=== PATIENT | male | born 1955 | race Caucasian/White ===

== ENCOUNTER 2024-06-02 14:34 | Emergency (ER) | payer MEDICARE, SELFPAY ==
[2024-06-02 14:52] VITALS: BP 155/93
[2024-06-02 15:12] LABS: Urine Albumin Negative (Neg - Trace); Urine Bilirubin Negative (Negative); Urine Character Clear (Clear); Urine Color Yellow; Urine Glucose Negative (Negative); Urine Ketone Negative (Negative); Urine Leukocyte Negative (Negative); Urine Nitrite Negative (Negative); Urine Occult Blood 3+ (Negative); Urine Urobilinogen Negative (Neg - 1+)
[2024-06-02 15:13] LABS: % Basophils 0.4 % (0-2); % Eosinophils 2.3 % (0-6); % Immature Granulocytes 0.3 % (0-0.5); % Lymphocytes 19.5 % (20.5-51.1); % Monocytes 8.2 % (1.7-9.3); % Neutrophils 69.3 % (42.2-75.2); Absolute Eosinophils 0.2 10^3/uL (0-0.7); Absolute Lymphocytes 1.4 10^3/uL (1.2-3.4); Absolute Monocytes 0.6 10^3/uL (0.1-0.6); Absolute Neutrophils 5.1 10^3/uL (1.4-6.5); Hematocrit 44.9 % (39.0-52.0); Hemoglobin 16.2 g/dL (13.0-18.0); Mean Corp Hgb Conc. 36.1 g/dL (33.0-37.0); Mean Corpuscular Hgb 32.1 pg (27.0-31.0); Mean Corpuscular Volume 88.9 fL (80.0-94.0); Mean Platelet Volume 10.8 fL (7.4-10.4); Nucleated Red Blood Cells % 0 % (-); Platelet Count 294 10^3/uL (130-400); Red Blood Cell Count 5.05 10^6/uL (4.70-6.10); White Blood Cell Count 7.4 10^3/uL (4.8-10.8)
[2024-06-02 15:27] LABS: Potassium 4.1 mmol/L (3.5-5.1); Sodium 134 mmol/L (135-145)
[2024-06-02 15:28] LABS: ALT (SGPT) 45 U/L (0-50); AST (SGOT) 36 U/L (17-59); Albumin 4.5 g/dl (3.5-5.0); Alkaline Phosphatase 126 U/L (38-126); Blood Urea Nitrogen 23 mg/dl (9-20); Calcium 9.6 mg/dl (8.4-10.2); Carbon Dioxide 26 mmol/L (22-30); Chloride 99 mmol/L (98-107); Glucose 139 mg/dl (70-99); Lipase 77 U/L (23-300); Total Protein 6.8 g/dl (6.3-8.2); eGFR > 60.00
[2024-06-02 15:48] LABS: Urine Bacteria Few (Negative); Urine Mucus Many; Urine Red Blood Cell 26-30 /HPF (0-2); Urine Squamous Cell 0-2 /LPF (Few); Urine White Cell 0-2 /HPF (0-5)
--- NOTE | 2024-06-02 16:00 | ED.GENMED ---
History of Present Illness
<Marisol Jain PA-C - Last Filed: 06/02/24 23:10>
General
Chief Complaint: Flank Pain
Source: patient
Exam Limitations: none
Time Seen by Provider: 06/02/24 15:50
Nursing documentation reviewed up to this point in time: agreed with
History of Present Illness
History of Present Illness:
Patient is a 68-year-old male with history hypertension, hyperlipidemia, kidney stones presenting to the emergency department for evaluation of acute onset right flank pain around 1 PM today. Patient states that he was sitting down making phone
call in his room when he noticed that he acute onset dull ache in his right flank. Patient states pain has been constant since initial onset around 1 PM and is worsening in severity. Patient did have 1 wave of nausea earlier which has since
resolved. Patient denies any associated fever, chills, vomiting, dysuria, urinary frequency, or hematuria.
Patient does report a history of kidney stones although he has not had one in many years. Patient feels as if this pain is very similar to prior kidney stones.
Past History
<Marisol Jain PA-C - Last Filed: 06/02/24 23:10>
Past History
ED Past Medical History: Hypercholesterolemia and Other (Kidney stone)
ED Past Surgical History: None
Social History
Tobacco: Non-smoker
Alcohol: Occasional
Personal:
Living: with family
Employment: Employed
Family History
Family History: Other (Noncontributory)
Review of Systems
<Marisol Jain PA-C - Last Filed: 06/02/24 23:10>
Review of Systems
Allergies reviewed?: Yes
All Other Systems: ROS reviewed and negative except as documented in HPI and ROS
Phy Exam
<Marisol Jain PA-C - Last Filed: 06/02/24 23:10>
Physical Exam
Physical Exam:
Vitals: Hypertensive, otherwise vital signs stable. Afebrile
General: Patient is well appearing, no acute distress. Nontoxic-appearing
Skin: Warm and dry, no rashes or lesions
Head: Normocephalic, atraumatic
Eyes: Sclera nonicteric. EOMs intact. No nystagmus.
Throat: Protecting airway
Neck: Normal ROM, no cervical spine tenderness, no meningismus
Cardiac: Regular rate and rhythm, no murmurs.
Pulm: Normal respiratory effort, no wheezes, rales, rhonchi heard on exam.
Abdomen: Abdomen soft. No abdominal tenderness. No CVA tenderness. No rashes.
Extremities: No evidence of cyanosis or edema. Great distal pulses
Neuro: AAOx3. CN II-XII intact. No focal neurologic deficits.
Psychiatric: Normal affect.
Course
<Marisol Jain PA-C - Last Filed: 06/02/24 23:10>
Orders/Labs/Results
Orders:
Orders
06/02/24 15:00
Complete Blood Count/With Diff Urgent
Comprehensive Metabolic Panel Urgent
Lipase Urgent
06/02/24 15:07
Urinalysis Reflex To Culture Urgent
Date Specimen was Collected: 06/02/24
Time Specimen was Collected: 14:56
Urine Microscopic Reflex Cult Urgent
06/02/24 15:59
CT Abd/pel Without Iv Or Oral Urgent
Comment: hx kidney stones
Reason For Exam: Right flank pain
0.9% Sodium Chloride 1000 ml [Nss] 1,000 ml IV BOLUS
Ketorolac [Toradol] 15 mg IV NOW STA
06/02/24 19:38
Tamsulosin [Flomax] 0.4 mg PO NOW STA
Abnormal Lab Results
06/02/24 06/02/24
15:00 15:07
MCH 32.1 H pg
(27.0-31.0)
MPV 10.8 H fL
(7.4-10.4)
Lymphocytes % 19.5 L %
(20.5-51.1)
Sodium 134 L mmol/L
(135-145)
BUN 23 H mg/dl
(9-20)
Glucose 139 H mg/dl
(70-99)
Ur Occult Blood Reflex 3+ A
(Negative)
Urine RBC 26-30 A /HPF
(0-2)
Urine Bacteria (Reflex) Few A
(Negative)
06/02/24 15:00
06/02/24 15:00
Vital Signs
Initial and Last Documented VS:
Initial Vital Signs
Temp Pulse Resp BP Pulse Ox
98.1 F 62 16 155/93 97
06/02/24 14:52 06/02/24 14:52 06/02/24 14:52 06/02/24 14:52 06/02/24 14:52
Last Documented Vital Signs
Temp Pulse Resp BP Pulse Ox
98.1 F 71 16 138/78 98
06/02/24 14:52 06/02/24 19:44 06/02/24 19:44 06/02/24 19:44 06/02/24 19:44
<Daniella Villarreal, DO - Last Filed: 06/02/24 19:55>
Orders/Labs/Results
Orders:
Orders
06/02/24 15:00
Complete Blood Count/With Diff Urgent
Comprehensive Metabolic Panel Urgent
Lipase Urgent
06/02/24 15:07
Urinalysis Reflex To Culture Urgent
Date Specimen was Collected: 06/02/24
Time Specimen was Collected: 14:56
Urine Microscopic Reflex Cult Urgent
06/02/24 15:59
CT Abd/pel Without Iv Or Oral Urgent
Comment: hx kidney stones
Reason For Exam: Right flank pain
0.9% Sodium Chloride 1000 ml [Nss] 1,000 ml IV BOLUS
Ketorolac [Toradol] 15 mg IV NOW STA
06/02/24 19:38
Tamsulosin [Flomax] 0.4 mg PO NOW STA
Abnormal Lab Results
06/02/24 06/02/24
15:00 15:07
MCH 32.1 H pg
(27.0-31.0)
MPV 10.8 H fL
(7.4-10.4)
Lymphocytes % 19.5 L %
(20.5-51.1)
Sodium 134 L mmol/L
(135-145)
BUN 23 H mg/dl
(9-20)
Glucose 139 H mg/dl
(70-99)
Ur Occult Blood Reflex 3+ A
(Negative)
Urine RBC 26-30 A /HPF
(0-2)
Urine Bacteria (Reflex) Few A
(Negative)
06/02/24 15:00
06/02/24 15:00
Vital Signs
Initial and Last Documented VS:
Initial Vital Signs
Temp Pulse Resp BP Pulse Ox
98.1 F 62 16 155/93 97
06/02/24 14:52 06/02/24 14:52 06/02/24 14:52 06/02/24 14:52 06/02/24 14:52
Last Documented Vital Signs
Temp Pulse Resp BP Pulse Ox
98.1 F 71 16 138/78 98
06/02/24 14:52 06/02/24 19:44 06/02/24 19:44 06/02/24 19:44 06/02/24 19:44
<Marisol Jain PA-C - Last Filed: 06/02/24 23:10>
MDM/Problems Addressed
Differential Diagnosis Includes:
Not limited to: Kidney stone, UTI, pyelonephritis, zoster, muscle strain
MDM/Problems Addressed:
68-year-old male presenting with acute onset right flank pain earlier today with mild associated nausea. No fevers, chills, shortness of breath, urinary symptoms. Does have history of kidney stones which he states feels similar to this pain.
Mildly hypertensive, otherwise vital signs stable. Patient well-appearing, in no apparent distress. He is nontoxic-appearing. Heart regular rate and rhythm. Lungs clear bilaterally. Abdomen is soft and nontender throughout. No CVA tenderness.
No overlying rash or ecchymoses of flank suggest zoster. Patient is perfusing well with no clinical evidence of DVT on exam. Labs initiated in triage are without any clinically significant abnormalities. No leukocytosis. Urine does show 26-30
RBCs without any signs of infection. Patient was given a liter of normal saline and a dose of IV Toradol pending CT scan.
CT report reviewed. There is a 4 mm obstructing right mid ureteral calculus. Pain well-controlled following initial dose of Toradol. No evidence of infection or renal insufficiency. Do feel patient is a good candidate for trial of passing of
stone outpatient. Will send patient with pain management, Flomax. Will provide urology referral for which she should follow-up with. Return precautions discussed.
CT report did note coronary artery calcifications. Patient without any exertional chest pain or shortness of breath. No known history of cardiovascular disease. Will provide cardiology referral and recommend close follow-up. Return precautions
discussed at length. Patient seen by attending physician.
Chronic conditions affecting care:
History of kidney stone
Acute Exacerbation and/or Progression of Chronic Illness:
Obstructing right ureteral stone
<Marisol Jain PA-C - Last Filed: 06/02/24 23:10>
*Radiology
Radiology exam reviewed: preliminary read by ED provider (Obstructing right-sided ureteral stone) and radiology read reviewed (4 mm obstructing right mid ureteral calculus)
*Pulse Oximetry
Patient hypoxic: no
*EKG
Interpreted by ED Provider?: NA
*Head Control Clerk Interpretation
Rate: Head Control Clerk- N/A
*Critical Care Note
Total Time (30-74mins, 75-104mins- exclusive of procedures): Not Applicable
ED Attending Note
<Marisol Jain PA-C - Last Filed: 06/02/24 23:10>
-
Portions of this chart may have been created with voice recognition software.� Occasional wrong word or��sound alike� substitutions may have occurred due to the inherent limitations of voice recognition software.
<Daniella Villarreal DO - Last Filed: 06/02/24 19:55>
ED Attending Note
Patient seen and examined by attending physician: Yes
I performed a history and physical exam of patient and discussed management with resident, I reviewed resident's note and agree with documented findings and plan of care.: Yes
ED Attending Note:
I have reviewed and agree with Marisol Jain's history and treatment plan. 68yoM hx kidney stones presenting with right flank pain starting around 1pm today. Pt reports intermittent nausea, none now. No vomiting, dysuria, or hematuria. Pt states
pain resolved with toradol. Heart RRR, lungs clear, abdomen soft nondistended nontender. No CVA tenderness bilaterally. CT abdomen/pelvis shows 4mm right mid ureteral calculus with Moderate right ureteral and pelvicalyceal dilation as well as
moderate right perinephric edema. UA shows no blood, no UTI. Creatinine within normal limits. Stable for discharge with urology follow up.
Discharge Plan
Departure
Patient Disposition: Home (Routine Discharge)
Date of Disposition: 06/02/24
Time of Disposition: 19:41
Patient with high blood pressure during this ER visit?: Yes
Condition: Good
Covid-19: Not Applicable
Discharge Problem:
Right ureteral calculus
Instructions: Kidney Stones (DC), BLOOD PRESSURE
Prescriptions:
New
tamsulosin [Flomax] 0.4 mg capsule
0.4 mg PO DAILY 14 Days Qty: 14 0RF
oxycodone 5 mg tablet
5 mg PO Q6H PRN (Reason: Pain) Qty: 7 0RF
ondansetron 4 mg tablet,disintegrating
4 mg PO Q8H PRN (Reason: nausea and vomiting) Qty: 10 0RF
No Action
levofloxacin [Levaquin] 250 MG tablet
250 mg PO DAILY Qty: 6 0RF
ketorolac 10 MG tablet
10 mg PO QID Qty: 12 0RF
tamsulosin 0.4 MG capsule
0.4 mg PO HS Qty: 10 0RF
hydrocodone-acetaminophen 1 EACH tablet
1 ea PO QIDPRN PRN (Reason: pain) Qty: 6 0RF
Referrals:
Yanely [place] CRNP [Family Provider] -
Abdirashid Umanzor MD [Active] - Call in 1-3 days for appt
Matthew Quiñonez MD [Active] - Call in 1-3 days for appt
Activity Restrictions/Additional Instructions:
RETURN TO THE EMERGENCY DEPARTMENT WITH ANY FEVERS, CHILLS, SEVERE ABDOMINAL/BACK PAIN, INTRACTABLE NAUSEA/VOMITING, SEVERE FATIGUE, WORSENING IN CURRENT SYMPTOMS, OR ANY OTHER CONCERNS
-A few prescriptions have been sent to your pharmacy. You can take 600 mg of ibuprofen every 6-8 hours as needed for pain. If you are experiencing severe pain�you can take oxycodone every 6 hours as needed. This will cause drowsiness and you
should not take prior to driving.
-Take the Flomax daily until the stone is passed.
-It is important to stay well-hydrated. Continue to strain your urine.
-Follow-up with urology for further evaluation/management.
-As discussed there were some calcifications noted in your coronary arteries on the CT scan today. You should follow-up with a weed burner for further evaluation/management. Return to the emergency department any symptoms including chest pain,
shortness of breath, lightheadedness.
Monitor your symptoms closely and return to the emergency department with any acute worsening/new symptoms
Interventions
Interventions:
*Risk Screen - Suicide Last Done: 06/02/24 15:50
*General Assessment Last Done: 06/02/24 15:49
*Neglect/Abuse Screening Last Done: 06/02/24 15:50
ED- Fall Risk Assessment Last Done: 06/02/24 19:55
*ED COVID-19 Vaccine History Last Done: 06/02/24 15:49
*Nursing Disposition Last Done: 06/02/24 19:55
WB-Xswbmq-Tswjtoatzh Assessment Last Done: 06/02/24 15:49
ED-Male Genitourinary Assessment Last Done: 06/02/24 15:49
Discharge Date and Time
Discharge Date/Time: 06/02/24 19:56
Print Language: IRISH
[2024-06-02] MEDS: TORADOL 15 MG IV (16:17)
[2024-06-02] MEDS: NSS 1000 IV (16:17)
[2024-06-02 16:18] VITALS: BP 148/75
[2024-06-02 18:00] VITALS: BP 141/74
[2024-06-02] MEDS: FLOMAX 0.4 MG PO (19:41)
[2024-06-02 19:44] VITALS: BP 138/78
== END 2024-06-02 19:56 | disposition home or self-care (01) ==
LOC: EMR 14:34
PROVIDERS: EMERGENCY PHYSICIAN Emergency Medicine; FAMILY PHYSICIAN Nurse Practitioner Primary Care
DX: R10.9 Unspecified abdominal pain (principal); I10 Essential (primary) hypertension; E78.00 Pure hypercholesterolemia, unspecified; I25.10 Atherosclerotic heart disease of native coronary artery without angina pectoris; Z87.442 Personal history of urinary calculi
CPT/HCPCS: 99284; 96374; 96361; 74176; 80053; 81003; 81015; 83690; 85025